=== PATIENT | male | born 1995 | race Hispanic/Latino ===

== ENCOUNTER 2022-08-31 10:21 | Emergency (ER) | payer BC ==
[~2022-08-31] VITALS: Ht 175.3 cm; Wt 158.8 kg
== END 2022-08-31 13:37 | disposition home or self-care (01) ==
LOC: ER 10:27
DX: R07.89 Other chest pain (principal); R06.02 Shortness of breath; I10 Essential (primary) hypertension
CPT/HCPCS: 71045; 93005